=== PATIENT | female | born 1990 | race Caucasian/White ===

== ENCOUNTER 2017-05-02 15:25 | Emergency (ER) | payer OTHER ==
[~2017-05-02] VITALS: Ht 157.5 cm; Wt 104.8 kg
[2017-05-02 15:32] VITALS: Ht 157.5 cm; Wt 104.8 kg
--- NOTE | 2017-05-02 16:24 | ERD ---
ER Documentation Chief Complaint Chief Complaint cough x 1 week HPI Otherwise healthy 27-year-old female presenting with a chief complaint of cough 1-2 weeks. Denies fever, difficulty breathing, chest pain, abdominal pain, nausea, vomiting, congestion, pharyngitis, headache or meningismus. Sick contacts with both of her sons who have URI type symptoms. Has not taken any medication to relieve the symptoms. Patient has no other complaints and describes no other associated manifestations. Nursing notes have been reviewed and are consistent with history given. ROS All systems reviewed and are negative except as per history of present illness. Medications Home Meds Reported Medications [None] No Conflict Check 06/16/12 Allergies Allergies: Coded Allergies: No Known Drug Allergies (Verified Allergy, Mild, 06/25/10) No Known Allergies (Verified Allergy, Unknown, 05/07/14) PMhx/Soc History of Surgery: No Anesthesia Reaction: No Hx Neurological Disorder: No Hx Respiratory Disorders: No Hx Cardiac Disorders: No Hx Psychiatric Problems: No Hx Miscellaneous Medical Probl: Yes (dx: 31 wks pain) Hx Alcohol Use: No Hx Substance Use: No Hx Tobacco Use: No Physical Exam Vitals Vital Signs Date Time Temp Pulse Resp B/P Pulse Ox O2 Delivery O2 Flow Rate FiO2 05/02/17 15:32 98.2 79 18 124/72 98 Physical Exam Const: Well-appearing 27-year-old female eating a sandwich on initial presentation. Nontoxic and well-appearing Head: Atraumatic Eyes: Normal Conjunctiva ENT: Normal External Ears, Nose and Mouth. Neck: Full range of motion..~ No meningismus. Resp: Clear to auscultation bilaterally Cardio: Regular rate and rhythm, no murmurs Abd: Soft, non tender, non distended. Normal bowel sounds Skin: No petechiae or rashes Back: No midline or flank tenderness Ext: No cyanosis, or edema Neur: Awake and alert Psych: Normal Mood and Affect Procedures/MDM Overweight otherwise healthy and well-appearing 27-year-old female presenting with a chief complaint of cough physical examination was unremarkable. No indication for imaging modality at this time. Most likely diagnosis is upper respiratory infection. I have no suspicion for pneumonia or other SBI, or airway compromise. I recommended supportive therapy with follow-up with PCP in the next 1-3 days. I have spoke with the patient regarding their condition and future management. They have verbally responded that they understand their status and treatment plan. The patients vitals are stable, and their current condition is appropriate for discharge. The patient will be given discharge instructions with return precautions. Departure Diagnosis: Primary Impression: Cough Condition: Stable Patient Instructions: Uri, Viral, No Abx (Adult) Additional Instructions: Follow up with your PCP within the next 1-3 days for a more thorough evaluation and a possible referral to a specialist. Return the the emergency department immediately if symptoms worsen or change. If you have any questions regarding medications, ask your pharmacist or us before you leave. If any adverse reactions occur while taking your medications, discontinue the treatment and return to the emergency department immediately. DRAKE LAY PA-C May 02, 2017 16:24
== END 2017-05-02 16:58 | disposition home or self-care (01) ==
LOC: FTE 15:25
DX: R05 Cough (principal)
CPT/HCPCS: 99282

== ENCOUNTER 2017-08-30 21:38 | Inpatient (IN) | END 2017-09-02 21:10 | disposition home or self-care (01) | DRG 778 ==